=== PATIENT | female | born 2000 | race Caucasian/White ===

== ENCOUNTER 2020-10-20 17:59 | Emergency (ER) | payer OTHER ==
[~2020-10-20] VITALS: Ht 160 cm; Wt 54.4 kg
[2020-10-20] MEDS ORDERED: VITAMINS A-D-E1 EACH PO (18:12)
[2020-10-20] MEDS ORDERED: TRIAMCINOLONE A80 G2 TOP (18:56)
[2020-10-20] MEDS ORDERED: CENTANY30 GM TOP (18:56)
[2020-10-20] MEDS ORDERED: KEFLEX500 M1 PO (18:56)
[2020-10-20] MEDS ORDERED: MEDROLDOSEPACK PO (18:56)
[2020-10-20 19:15] VITALS: BP 117/75
== END 2020-10-20 19:15 | disposition home or self-care (01) ==
LOC: M.ERS 17:59
DX: R21 Rash and other nonspecific skin eruption (principal); Z79.899 Other long term (current) drug therapy